=== PATIENT | female | born 1970 | race Caucasian/White ===

== ENCOUNTER 2017-08-12 22:54 | Emergency (ER) | payer SELFPAY ==
[2017-08-12 23:43] LABS: APPEARANCE,URINE SLIGHTLY-CLOUDY; BILIRUBIN,URINE NEGATIVE (NEGATIVE); GLUCOSE, URINE NEGATIVE (NEGATIVE); KETONES,URINE NEGATIVE (NEGATIVE); LEUKOCYTE ESTERASE,URINE TRACE (NEGATIVE); NITRITE,URINE NEGATIVE (NEGATIVE); PROTEIN,URINE NEGATIVE (NEGATIVE); URINE SPECIFIC GRAVITY 1.006; UROBILINOGEN,URINE NEGATIVE mg/dL (<2.0)
--- NOTE | 2017-08-13 00:16 | ER Document Report ---
ED General - General Mode of Arrival: Ambulatory - rode in with medic who was transporting significant other Information source: Patient <STAR IRBY - Last Filed: 08/13/17 02:04> <GINGER IBARRA - Last Filed: 08/13/17 03:09> - General Chief Complaint: Swelling Stated Complaint: BODY PAIN/SWELLING Time Seen by Provider: 08/13/17 00:16 Notes: Patient is a 46-year-old female presenting to emergency department for swelling and pain to the right side of her body. Patient states she has had pain to her entire body and she has neuropathy. Patient states she has had increased pain since she noticed some swelling x1 week ago. Patient states her swelling in her legs, and right arm is worse at night. Patient states she has more pain in her right arm compared to her left however, she complains of pain throughout her entire body as well. Patient also states that she had some low back pain and abdominal pain onset yesterday. Patient also states she is sore under her right arm and has been having some discharge from her right breast x2 days. Patient states she did have a mammogram several months ago which showed fibrocystic changes; patient has not had an ultrasound on her right breast. Patient states she saw her primary care physician yesterday and she mentioned the swelling and pain but did not mention the abdominal pain, back pain or breast discharge. Patient states she also occasionally gets chest pains but has not told her PCP about this as well. Patient states she is being referred to [place] for a [facility] neurologist due to her seizure disorder. Patient has a history of diabetes mellitus, COPD, depression, PTSD, irregular heart rate, and seizures. Patient states she has had bilateral carpal tunnel surgeries, a tubal ligation, cholecystectomy and also states she has been told she has a fatty liver. PCP [place] [facility] (STAR IRBY) - Related Data Allergies/Adverse Reactions: aripiprazole [From Abilify] Allergy (Verified 08/12/17 23:05) codeine Allergy (Verified 08/12/17 23:05) diphenhydramine [From Benadryl] Allergy (Verified 08/12/17 23:05) Penicillins Allergy (Verified 08/12/17 23:05) Past Medical History - General Information source: Patient - Social History Smoking Status: Former Smoker Cigarette use (# per day): No Chew tobacco use (# tins/day): No Smoking Education Provided: No Frequency of alcohol use: None Drug Abuse: Marijuana Family History: None Patient has suicidal ideation: No Patient has homicidal ideation: No Pulmonary Medical History: Reports: Hx COPD Endocrine Medical History: Reports: Hx Diabetes Mellitus Type 2 Psychiatric Medical History: Reports: Hx Depression, Hx Post Traumatic Stress Disorder Past Surgical History: Reports: Hx Cholecystectomy, Hx Orthopedic Surgery - carpal tunnel bilaterally, Hx Tubal Ligation <HUNGXIOMARASTAR - Last Filed: 08/13/17 02:04> Review of Systems - Review of Systems Constitutional: denies: Fever EENT: No symptoms reported Cardiovascular: No symptoms reported. denies: Chest pain Respiratory: No symptoms reported. denies: Cough, Short of breath Gastrointestinal: See HPI, Abdominal pain. denies: Vomiting, Blood streaked bowels, Black stools Genitourinary: See HPI, Other - decreased amounts of urine. denies: Burning, Dysuria Female Genitourinary: No symptoms reported Musculoskeletal: See HPI, Back pain, Other Skin: See HPI, Other. denies: Rash Hematologic/Lymphatic: No symptoms reported Neurological/Psychological: No symptoms reported. denies: Sensory change, Numbness, Tingling -: Yes All other systems reviewed and negative <STAR IRBY - Last Filed: 08/13/17 02:04> Physical Exam - Vital signs Interpretation: Normal <SUREKHABRITTANYSTAR - Last Filed: 08/13/17 02:04> <GINGER IBARRA - Last Filed: 08/13/17 03:09> - Vital signs Vitals: Temp Pulse Resp BP Pulse Ox 98.2 F 79 18 119/74 99 08/12/17 23:04 08/12/17 23:04 08/12/17 23:04 08/12/17 23:04 08/12/17 23:04 - Notes Notes: GENERAL: Alert, interacts well. No acute distress. HEAD: Normocephalic, atraumatic. EYES: Pupils equal, round, and reactive to light. Extraocular movements intact. ENT: Oral mucosa moist, tongue midline. NECK: Full range of motion. Supple. Trachea midline. LUNGS: Clear to auscultation bilaterally, no wheezes, rales, or rhonchi. No respiratory distress. Right breast has some tenderness with palpation laterally and is non-tender over the nipple, there is no discharge with light pressure, no erythema, and no skin changes. HEART: Regular rate and rhythm. No murmurs, gallops, or rubs. ABDOMEN: Soft, LLQ tenderness with palpation. Non-distended. Bowel sounds present in all 4 quadrants. BACK: No CVA tenderness to percussion. EXTREMITIES: Moves all 4 extremities spontaneously. 1+ pitting edema bilaterally , slightly worse on the right which extends half way up the zamudio. Radial and dorsalis pedis pulses 2/4 bilaterally. Right forearm is slightly more firm than the left, there is not a significant difference in the size of both forearms. No cyanosis. NEUROLOGICAL: Alert and oriented x3. Normal speech. PSYCH: Normal affect, normal mood. SKIN: Warm, dry, normal turgor. No rashes or lesions noted. (STAR IRBY) Course - Laboratory Result Diagrams: 08/13/17 01:00 08/13/17 01:00 <STAR IRBY - Last Filed: 08/13/17 02:04> - Laboratory Result Diagrams: 08/13/17 01:00 08/13/17 01:00 <GINGER IBARRA - Last Filed: 08/13/17 03:09> - Re-evaluation Re-evalutation: 08/13/17 02:56 CBC grossly unremarkable, coags normal, CMP shows slightly low potassium at 3.4 , CO2 slightly low 21, no renal failure, cardiac enzymes negative, no evidence of rhabdo with a CK of 85, thyroid function normal, proBNP normal, hCG negative , urinalysis shows large blood, 3 RBCs, trace leukocyte esterase with 6 WBCs and 1+ bacteria, this will be sent for culture. Chest x-ray shows no acute process. Discussed with patient that her physical exam does not show significantly more swelling on one side than the other, there is no evidence of congestive heart failure, I do not see any signs of DVT, DVT would be extremely unlikely as she is complaining of swelling both in her right upper and right lower extremity. Discussed with patient that my larger concern is that she may have breast cancer given the discharge from her right nipple. Discussed that though she had a normal mammogram within the past several months she needs to specifically discuss the nipple discharge in the axillary adenopathy with her primary care physician and consider ultrasound or ductogram. Patient is aware of this and will discuss this with her primary care physician. (GINGER IBARRA) - Vital Signs Vital signs: Temp Pulse Resp BP Pulse Ox 98.2 F 79 18 100/57 L 95 08/12/17 23:04 08/12/17 23:04 08/13/17 02:01 08/13/17 02:00 08/13/17 02:01 - Laboratory Laboratory results interpreted by me: 08/12/17 08/13/17 08/13/17 23:16 01:00 01:00 Hct 35.7 L RDW 14.3 H Potassium 3.4 L Chloride 111 H Carbon Dioxide 21 L Glucose 124 H Urine Blood LARGE H Ur Leukocyte Esterase TRACE H - EKG Interpretation by Me Additional EKG results interpreted by me: 08/13/17 02:56 EKG shows sinus rhythm at a rate of 63, first-degree AV block, normal axis, no ST segment elevations or depressions, no T-wave inversions per my interpretation. (GINGER IBARRA) Discharge <STAR IRBY - Last Filed: 08/13/17 02:04> <GINGER IBARRA - Last Filed: 08/13/17 03:09> - Discharge Clinical Impression: Pain of right side of body, Swelling of right upper extremity, Swelling of right lower extremity, Discharge from right nipple UTI (urinary tract infection) Qualifiers: Urinary tract infection type: acute cystitis Hematuria presence: with hematuria Qualified Code(s): N30.01 - Acute cystitis with hematuria Condition: Stable Disposition: HOME, SELF-CARE Additional Instructions: We are treating her mild urinary tract infection with Macrobid. Regarding the discharge from your right nipple it is very important that you mention this to your primary care physician. They will likely want to order an ultrasound of your breast or possibly do a ductogram to see what is causing this discharge. It is very important that we prove that this discharge is not breast cancer. Prescriptions: Nitrofurantoin/Nitrofuran Mac [Macrobid 100 mg Capsule] 1 tab PO BID #10 capsule Referrals: NAN OWENS JR, MD [Primary Care Provider] - Follow up as needed Scribe Attestation: 08/13/17 03:09 I personally performed the services described in the documentation, reviewed and edited the documentation which was dictated to the scribe in my presence, and it accurately records my words and actions. (GINGER IBARRA) Scribe Documentation - Scribe Written by Lee Ann:: Lee Ann Coon 08/13/2017 1:52 acting as scribe for :: Santos <STAR IRBY - Last Filed: 08/13/17 02:04>
[2017-08-13 01:16] LABS: ABSOLUTE BASOPHILS # (AUTO) 0.1 10^3/uL (0.0-0.2); ABSOLUTE EOSINOPHILS # (AUTO) 0.2 10^3/uL (0.0-0.6); ABSOLUTE LYMPHOCYTES (AUTO) 2.5 10^3/uL (0.5-4.7); ABSOLUTE MONOCYTES (AUTO) 0.6 10^3/uL (0.1-1.4); ABSOLUTE NEUT (AUTO) 5.2 10^3/uL (1.7-8.2); BASOPHILS % (AUTO) 1.5 % (0-2); EOSINOPHILS % (AUTO) 1.8 % (0-6); HEMATOCRIT 35.7 % (36.0-47.0); HEMOGLOBIN 12.4 g/dL (12.0-15.5); HGB HCT DIFFERENCE 1.5; LYMPHOCYTES % (AUTO) 28.7 % (13-45); MEAN CORPUSCULAR HEMOGLOBIN 32.2 pg (27.0-33.4); MEAN CORPUSCULAR HGB CONC 34.7 g/dL (32.0-36.0); MEAN CORPUSCULAR VOLUME 93 fl (80-97); MONOCYTES % (AUTO) 6.6 % (3-13); RED BLOOD COUNT 3.85 10^6/uL (3.72-5.28); RED CELL DISTRIBUTION WIDTH 14.3 % (11.5-14.0); SEGMENTED NEUTROPHILS % (AUTO) 61.4 % (42-78); WHITE BLOOD COUNT 8.6 10^3/uL (4.0-10.5)
[2017-08-13 01:20] LABS: PROTHROMBIN TIME 13.4 SEC (11.4-15.4)
[2017-08-13 01:29] LABS: ALANINE AMINOTRANSFERASE 28 U/L (9-52); ALBUMIN 4.1 g/dL (3.5-5.0); ALKALINE PHOSPHATASE 63 U/L (38-126); ANION GAP 12 (5-19); ASPARTATE AMINO TRANSFERASE 20 U/L (14-36); BILIRUBIN,DIRECT 0.3 mg/dL (0.0-0.4); BILIRUBIN,TOTAL 0.4 mg/dL (0.2-1.3); BLOOD UREA NITROGEN 14 mg/dL (7-20); CALCIUM 9.1 mg/dL (8.4-10.2); CARBON DIOXIDE 21 mmol/L (22-30); CHLORIDE 111 mmol/L (98-107); CREATINE KINASE 85 U/L (30-135); GLUCOSE 124 mg/dL (75-110); POTASSIUM 3.4 mmol/L (3.6-5.0); SODIUM 144.1 mmol/L (137-145); TOTAL PROTEIN 7.1 g/dL (6.3-8.2)
[2017-08-13 01:41] LABS: CREATINE KINASE MB 0.44 ng/mL (<4.55)
[2017-08-13 01:44] LABS: TROPONIN I < 0.012 ng/mL
[2017-08-13 02:13] LABS: FREE T3 3.87 pg/mL (2.77-5.27)
--- NOTE | 2017-08-13 02:15 | RADIOLOGY REPORT (SQ) ---
EXAM DESCRIPTION: CHEST PA/LAT COMPLETED DATE/TIME: 08/13/2017 1:35 am REASON FOR STUDY: right sided swelling COMPARISON: None. EXAM PARAMETERS: NUMBER OF VIEWS: two views TECHNIQUE: Digital Frontal and Lateral radiographic views of the chest acquired. RADIATION DOSE: NA LIMITATIONS: none FINDINGS: LUNGS AND PLEURA: No opacities, masses or pneumothorax. No pleural effusion. MEDIASTINUM AND HILAR STRUCTURES: No masses or contour abnormalities. HEART AND VASCULAR STRUCTURES: Heart normal size. No evidence for failure. BONES: No acute findings. HARDWARE: Right upper abdominal clips. OTHER: No other significant finding. IMPRESSION: NO SIGNIFICANT RADIOGRAPHIC FINDING IN THE CHEST. TECHNICAL DOCUMENTATION: JOB ID: [id number] [employer]- All Rights Reserved
[2017-08-13 02:27] LABS: THYROID STIMULATING HORMONE 2.9 uIU/mL (0.47-4.68)
[2017-08-13] MEDS ORDERED: NITROFURANTOIN MONOHYD/M-CRYST 100 MG CAPSULE PO ONE (02:58)
[2017-08-13 04:05] VITALS: BP 111/70
--- NOTE | 2017-08-13 06:17 | EKG REPORT ---
SEVERITY:- ABNORMAL ECG - SINUS RHYTHM FIRST DEGREE AV BLOCK : Confirmed by: Abdoul Cleaning MD 13-Aug-2017 06:16:44
== END 2017-08-13 04:05 | disposition home or self-care (01) ==
LOC: ER 22:54
DX: E11.40 Type 2 diabetes mellitus with diabetic neuropathy, unspecified (principal); N64.52 Nipple discharge; M79.89 Other specified soft tissue disorders; N30.01 Acute cystitis with hematuria; I44.30 Unspecified atrioventricular block; M54.5 Low back pain; R10.9 Unspecified abdominal pain; Z87.891 Personal history of nicotine dependence
CPT/HCPCS: 93005; 99284; 36415; 87086; 84439; 82553; 82550; 84443; 84703; 85025; 85610; 81025; 80053; 81001; 84484; 84481; 83880; 71020; 93010; J8499